=== PATIENT | female | born 1960 | race Caucasian/White ===

== ENCOUNTER 2022-11-10 23:06 | Emergency (ER) | payer MEDICAID ==
[~2022-11-10] VITALS: Ht 170.2 cm; Wt 115.7 kg
--- NOTE | 2022-11-10 23:28 | NUR ---
PATIENT BIBRA 88 FROM HOME FOR C/O LUE PAIN S/P GLF. PT IS A/OX 4, RR EVEN, VSS, NO ACUTE DISTRESS NOTED.
--- NOTE | 2022-11-10 23:50 | NUR ---
BASKETBALL REFEREE AT PT'S BEDSIDE
[2022-11-11] MEDS ORDERED: TRAMADOL HCL 50 MG TABLET ONE (00:28)
[2022-11-11] MEDS: TRAMADOL HCL 50 MG TABLET PO ONE (00:30)
--- NOTE | 2022-11-11 00:33 | NUR ---
EMT AT PT'S BEDSIDE FOR SPLINT TO LUE
[2022-11-11] MEDS ORDERED: TRAM50TA2 PO (00:42)
--- NOTE | 2022-11-11 01:25 | NUR ---
Patient discharged to home in stable condition. Written and verbal after care instructions given. Patient verbalizes understanding of instruction.
[2022-11-11 02:15] VITALS: BP 158/79
== END 2022-11-11 01:25 | disposition home or self-care (01) ==
LOC: ER 23:14
DX: S52.592A Other fractures of lower end of left radius, initial encounter for closed fracture (principal); S80.01XA Contusion of right knee, initial encounter; J44.9 Chronic obstructive pulmonary disease, unspecified; G62.9 Polyneuropathy, unspecified; K21.9 Gastro-esophageal reflux disease without esophagitis; Z88.0 Allergy status to penicillin; Z88.2 Allergy status to sulfonamides; Z88.5 Allergy status to narcotic agent; Z88.6 Allergy status to analgesic agent; Z88.8 Allergy status to other drugs, medicaments and biological substances; W18.30XA Fall on same level, unspecified, initial encounter; Y93.89 Activity, other specified; Y92.89 Other specified places as the place of occurrence of the external cause; Y99.8 Other external cause status; Z60.2 Problems related to living alone
CPT/HCPCS: 73110; 73564-TC

== ENCOUNTER 2023-03-27 13:10 | Emergency (ER) | payer MEDICAID ==
[~2023-03-27] VITALS: Ht 170.2 cm; Wt 112.5 kg
[~2023-03-27 13:10] MED LIST: TRAM50TA2 PO
[2023-03-27] MEDS ORDERED: IV NS 0.9% 1,000 ML IV ONE (14:00)
[2023-03-27] MEDS ORDERED: methylPREDNISolone SOD SUCC 125 MG/2ML VIAL IV ONE (14:00)
[2023-03-27] MEDS ORDERED: methylPREDNISolone SOD SUCC 125 MG/2ML VIAL ONE (14:01)
--- NOTE | 2023-03-27 14:29 | NUR ---
RAC 20 G ESTABLISHED. BLOOD COLLECTED AND SENT TO LAB. LINE FLUSHED, PT TOLERATED WELL
[2023-03-27 14:31] LABS: BASOPHILS # (AUTO) 0.2 K/uL (0.0-0.2); BASOPHILS % (AUTO) 1.7 % (0.0-2.0); EOSINOPHILS % (AUTO) 0.9 % (0.0-6.0); HEMATOCRIT 49 % (33-45); HEMOGLOBIN 15.7 g/dL (11.5-14.8); LYMPHOCYTES # (AUTO) 1.4 K/uL (0.8-4.8); LYMPHOCYTES % (AUTO) 13.7 % (20.0-44.0); MEAN CORPUSCULAR HGB CONC 33 g/dl (31.0-36.0); MEAN CORPUSCULAR VOLUME 84 fL (82-100); MONOCYTES # (AUTO) 0.5 K/uL (0.1-1.30); NEUTROPHILS # (AUTO) 7.9 K/uL (1.8-8.9); NEUTROPHILS % (AUTO) 78.7 % (43.0-81.0); PLATELET COUNT (AUTO) 266 K/uL (150-450); RED BLOOD CELL COUNT(AUTO) 5.76 MIL/uL (4.0-5.2)
[2023-03-27 14:39] LABS: C-REACTIVE PROTEIN 0.4 mg/dL (0.0-0.9)
[2023-03-27 14:40] LABS: CALCIUM, SERUM 9.4 mg/dL (8.5-10.1); CREATININE 0.9 mg/dL (0.6-1.3); POTASSIUM 4.2 mmol/L (3.5-5.1)
[2023-03-27 14:46] LABS: ALBUMIN 3.9 g/dL (3.4-5.0); BILIRUBIN,TOTAL 0.9 mg/dL (0.2-1.0); TOTAL PROTEIN, SERUM 6.9 g/dL (6.4-8.2)
[2023-03-27] MEDS ORDERED: TRAM50TA2 PO (15:40)
[2023-03-27] MEDS ORDERED: PRED50TA PO (15:40)
[2023-03-27] MEDS ORDERED: TRIA80OI TP (15:40)
[2023-03-27 15:53] VITALS: BP 155/77
== END 2023-03-27 15:56 | disposition home or self-care (01) ==
LOC: ER 13:15
DX: L30.9 Dermatitis, unspecified (principal); J44.9 Chronic obstructive pulmonary disease, unspecified; K21.9 Gastro-esophageal reflux disease without esophagitis; Z88.0 Allergy status to penicillin; Z88.2 Allergy status to sulfonamides; Z88.8 Allergy status to other drugs, medicaments and biological substances; Z60.2 Problems related to living alone
CPT/HCPCS: 99283; 96374; 96361; 85025; 83605; 85652; 36415; 80053; 85730; 86140; J2930; J7030; A4223